=== PATIENT | male | born 1990 | race Caucasian/White ===

== ENCOUNTER 2019-06-24 10:03 | Emergency (ER) | payer SELFPAY ==
[2019-06-24 10:13] VITALS: BP 144/98; PULSE 115; RESP 16; TEMP 37.6; O2SAT 98
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
== END 2019-06-24 10:38 | disposition left against medical advice (07) ==
PROVIDERS: Emergency Provider Nurse Practitioner
DX: S01.312A Laceration without foreign body of left ear, initial encounter (principal); W25.XXXA Contact with sharp glass, initial encounter
CPT/HCPCS: 99202; G0463

== ENCOUNTER 2020-10-20 14:33 | Emergency (ER) | payer BC, SELFPAY ==
[2020-10-20 14:40] VITALS: BP 142/94; PULSE 101; RESP 16; TEMP 36.6; O2SAT 98
[2020-10-20 14:45] VITALS: BP 142/94; PULSE 101; RESP 16; TEMP 36.6; O2SAT 98
--- NOTE | 2020-10-20 14:45 | ED.EYEPROB ---
HPI - Eye Problem General Chief complaint: Eye Problems Stated complaint: Swollen eyelid Time Seen by Provider: 10/20/20 14:45 Source: patient and RN notes reviewed Mode of arrival: ambulatory Limitations: no limitations History of Present Illness HPI Narrative: 30-year-old male presents to the [facility] with complaints of right eye lid swelling and redness. States he noticed it this morning when he woke up. Has a possible bug bite to the medial aspect of the eyelid. No change in vision or blurry vision. No trauma to the eye. No discharge noted. Related Data Allergies Allergy/AdvReac Type Severity Reaction Status Date / Time No Known Allergies Allergy Verified 10/20/20 14:41 Review of Systems Review of Systems: All systems reviewed & are unremarkable except as noted in HPI and below Constitutional: Constitutional: Reports no additional constitutional complaints, Denies chills and Denies fever(s) Eyes: Eyes: Reports as per HPI, Denies blind spots, Denies exophthalmos, Denies change in vision, Denies eye discharge and Denies photophobia ENT: Reports system reviewed and no additional complaints, except as documented Cardiovascular: Cardiovascular: Reports no additional cardiovascular complaints and Denies chest pain Respiratory: Respiratory: Reports no additional respiratory complaints, Denies cough and Denies dyspnea Gastrointestinal: Gastrointestinal: Reports no additional gastrointestinal complaints, Denies abdominal pain, Denies nausea and Denies vomiting Musculoskeletal: Musculoskeletal: Reports no additional musculoskeletal complaints Integumentary/Breasts: Skin/Breast: Reports system reviewed and no additional complaints, except as docu, Denies erythema and Denies rash Neurologic: Reports system reviewed and no additional complaints, except as documented Psychiatric: Psychiatric: Reports no additional psychiatric complaints Allergic/Immunologic: Allergic/Immunologic: Reports no additional allergic/immunologic complaints PMFSH Past Medical History Medical History (Updated 10/21/20 @ 14:20 by Radha Goldberg) Refused assessment of physical health Comments At the time of my signature, I reviewed and agree with the nursing past medical, surgical, social, and family history. There is no relevant family history pertinent to the patient complaint. Exam Const: General: healthy appearing, no acute distress and alert Nutritional Appearance: well nourished Orientation/consciousness: patient oriented x3 Limitations: no limitations HENMT: Head: normal to inspection Ears: external ears normal, TM's normal bilaterally and Abnormal EAC present cerumen impaction on the left and excessive cerumen on the right General nose exam: Normal external nose present, Normal nares present and Normal nasal mucous membranes and turbinates present Face and sinus: normal facial exam Mouth: Yes Normal oral and palatal mucosa present and Yes lip normal Throat: posterior oropharynx normal Eyes: General: appearance normal, both eyes and all related structures Visual Moreira: normal visual moreira by confrontation Alignment and Position: alignment normal Eyelids: eyelid abnormality right upper eyelid erythema, swelling and tenderness Conjunctivae: conjunctivae normal Sclera: sclerae normal Cornea: corneas normal Pupils: Equal, round and reactive pupils present EOM: EOMs intact bilaterally Direct Ophthalmoscopy: no photophobia Neck: Neck: normal visual inspection, no lymphadenopathy and no meningeal signs Chest: Chest palpation & inspection: normal inspection of the chest Resp: Effort & Inspection: normal respiratory effort and no use of accessory muscles Auscultation: clear to auscultation bilaterally, no crackles, no rales, no rhonchi and no wheezes Cardio: Rate: regular rate Rhythm: regular rhythm Back/Spine/Pelvis: Back: no CVA tenderness Skin: General skin exam: normal color Rashes: no rashes Neuro: General: patient jaime
== END 2020-10-20 15:04 | disposition home or self-care (01) ==
PROVIDERS: Emergency Provider Nurse Practitioner; PCP Physician Assistant
DX: H10.9 Unspecified conjunctivitis (principal); H61.23 Impacted cerumen, bilateral
CPT/HCPCS: 69210; 99213; G0463

== ENCOUNTER 2020-10-22 15:34 | Emergency (ER) | payer BC, SELFPAY ==
[2020-10-22 15:41] VITALS: BP 140/99; PULSE 107; RESP 16; TEMP 36.9; O2SAT 99
--- NOTE | 2020-10-22 16:11 | ED.GENADULT ---
HPI - General Adult General Chief complaint: Skin/Abscess/Foreign Body Stated complaint: poison brendon Time Seen by Provider: 10/22/20 16:12 Source: patient and RN notes reviewed Mode of arrival: ambulatory Limitations: no limitations History of Present Illness HPI narrative: 30-year-old male presents with complaints of red, raised, itching, burning, rash to the right arm, right upper eyelid, right hip and groin area, for the past 3 days. 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 Denies new detergent, personal hygiene products, or laundry detergent. ?No new foods or medications. ?Rohit reports visiting the [facility] several days ago and currently being treated for Conjunctivitis with antibiotics by mouth and eye ointment. ?Right upper eyelid swelling is decreasing. No bleeding or drainage. Denies fever or chills, headaches, weakness, fatigue, myalgia, or tongue swelling. ?Denies chest pain or dyspnea. Remains active. ?The patient reports he has not been diagnosed with COVID-19. ?The patient reports he is not waiting for the results of a COVID-19 lab test. ?The patient reports he does not have a new or worsening cough. ?The patient reports he does not have any rhinorrhea, congestion, sore throat, loss of taste or smell, nausea, vomiting, abdominal pain, and diarrhea. ?Denies recent traveling. ?Denies concerns for COVID-19 or exposures. ?At this time, the patient is not suspected of having COVID-19. Some parts of this dictation were generated by voice recognition software and may contain typographical and/or grammatical inaccuracies. Related Data Allergies Allergy/AdvReac Type Severity Reaction Status Date / Time No Known Allergies Allergy Verified 10/20/20 14:41 Review of Systems Review of Systems: Narrative: CONSTITUTIONAL: Denies fever, chills, sweats. EYES: Denies visual changes, redness, discharge. ENT: Denies rhinorrhea, congestion, sore throat, otalgia. CARDIOVASCULAR: Denies chest pain, palpitations, edema. RESPIRATORY: Denies dyspnea, wheezing, cough. GASTROINTESTINAL: Denies abdominal pain, nausea, vomiting, diarrhea. GENITOURINARY: Denies dysuria, hematuria, abnormal discharge. SKIN: Complains of red, burning, and itching rash to right arm, right upper eyelid, right hip and groin area. Denies drainage. MUSCULOSKELETAL: Denies acute back pain, joint pain, or myalgia. NEUROLOGIC: Denies numbness or focal weakness. PSYCHIATRIC: Denies anxiety or depression. All other systems reviewed are negative, except as documented in HPI. [facility] Past Medical History Medical History (Updated 10/23/20 @ 00:00 by Brian Mason) No significant past medical history Surgical History Surgical History (Updated 10/22/20 @ 16:26 by KARINA Kirkpatrick) No significant past surgical history Family History Family History (Updated 10/22/20 @ 16:26 by KARINA Kirkpatrick) Father Alive and well Mother Alive and well Social History Social History (Updated 10/22/20 @ 16:27 by KARINA Kirkpatrick) Smoking status: Light tobacco smoker Tobacco type: cigarettes Second hand tobacco smoke exposure: No Alcohol intake: current Substance use: never Substance use type: does not use Living arrangements: with family Occupation/Education: occupation Gender identity (if verbalized by the patient): Male Comments At time of signature, agree with the nurse past medical, surgical, social, and family history. There is no relevant family history pertinent to the presenting complaint. Exam Narrative: Exam Narrative: GENERAL: This is a well-nourished, well-developed patient, in no apparent distress. Talks in full sentences and ambulates with steady gait without dyspnea. HEAD: Normocephalic, atraumatic. EYES: PERRL. Sclera clear/white. Vision is grossly intact. EARS: External ears normal, auditory canals clear and without drainage, TMs normal withou
[2020-10-22] MEDS: methylPREDNISolone SOD SUCC 125 MG VIAL IM (16:27)
[2020-10-22 16:47] VITALS: BP 138/80; PULSE 72; RESP 16
== END 2020-10-22 16:47 | disposition home or self-care (01) ==
PROVIDERS: Emergency Provider Nurse Practitioner Family; PCP Physician Assistant
DX: L23.7 Allergic contact dermatitis due to plants, except food (principal); F17.210 Nicotine dependence, cigarettes, uncomplicated
CPT/HCPCS: 96372; 99213; G0463; J2930

== ENCOUNTER 2022-07-25 13:24 | Emergency (ER) | payer OTHER, SELFPAY ==
[2022-07-25 13:37] VITALS: BP 144/95; PULSE 96; RESP 16; TEMP 37.2; O2SAT 99
--- NOTE | 2022-07-25 13:44 | ED.EXTPRO ---
HPI - Extremity Problem General Chief complaint: Extremity Injury, Upper Stated complaint: right arm pain Time Seen by Provider: 07/25/22 14:08 Source: patient and RN notes reviewed Mode of arrival: ambulatory Limitations: no limitations History of Present Illness HPI Narrative: 32-year-old male presents concern for right forearm pain. He reports pain started this morning, he denies injury or trauma. He denies redness, warmth, swelling. Reports the arm feels hard. He reports arm pain worsens when he makes a fist. He reports he cannot outward flex his wrist without pain to the forearm MD Complaint: extremity pain Related Data Home Medications Medication Instructions Recorded Confirmed bupropion HCl 150 mg 24 hr tablet, mg PO 07/25/22 extended release lisinopril 10 mg tablet mg 07/25/22 Allergies Allergy/AdvReac Type Severity Reaction Status Date / Time No Known Allergies Allergy Verified 07/25/22 13:56 Review of Systems Review of Systems: CONSTITUTIONAL: Denies malaise, chills, sweats, or fever. CARDIOVASCULAR: Denies chest pain, palpitations, or edema. RESPIRATORY: Denies cough or dyspnea. SKIN: Denies rash or itching, bruising, redness, swelling. MUSCULOSKELETAL: Reports right forearm pain NEUROLOGIC: Denies numbness, weakness All systems reviewed & are unremarkable except as noted in HPI and below PMFSH Past Medical History Medical History (Updated 07/25/22 @ 14:13 by Radha Brown NP) No significant past medical history Surgical History Surgical History (Updated 10/22/20 @ 16:26 by KARINA Kirkpatrick) No significant past surgical history Family History Family History (Updated 10/22/20 @ 16:26 by KARINA Kirkpatrick) Father Alive and well Mother Alive and well Social History Social History (Updated 10/22/20 @ 16:27 by KARINA Kirkpatrick) Smoking status: Light tobacco smoker Tobacco type: cigarettes Second hand tobacco smoke exposure: No Alcohol intake: current Substance use: never Substance use type: does not use Living arrangements: with family Occupation/Education: occupation Gender identity (if verbalized by the patient): Male Comments At time of signature, agree with nursing past medical, surgical, social and family history. There is no relevant family history pertinent to the presenting complaint Exam Narrative: GENERAL: Well-appearing, well-nourished, and in no acute distress. HEAD: Normocephalic, atraumatic. EYES: PERRLA, conjunctivae clear NECK: Supple. CHEST: Speaks in full sentences. No respiratory distress. HEART: Regular rate and rhythm. Normal and equal peripheral pulses. EXTREMITIES: Right hand, wrist, forearm has grossly normal strength and sensation, limited range of motion. No edema or ecchymosis. 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 Normal sensation with sensitivity to light touch and pain. No point tenderness. No open wounds, no skin tenting, no devitalized tissue or atrophy, no trophic changes, no obvious deformity, alignment normal, nearby joints and structures intact. Distal pulses palpable and equal bilaterally, skin warm, dry, pink. Capillary refill less than 3 seconds. SKIN: Warm, dry, no rash. NEURO: Alert and oriented x3. PSYCH: Normal mood and affect Course Course Emergency Course: Patient is aware of diagnosis, understands and agrees to treatment plan. Anticipatory guidance given. Patient agrees to follow-up as directed and is aware of reasons to seek care at the emergency department. Portions of this record may have been created with voice recognition software Level of Care: Express Care Visit Vital Signs Vital signs: Vital Signs Temperature 99.0 F 07/25/22 13:37 Pulse Rate 96 07/25/22 13:37 Respiratory Rate 16 07/25/22 13:37 Blood Pressure 144/95 H 07/25/22 13:37 Pulse Oximetry 99 07/25/22 13:37 Oxygen Delivery Room Air 07/25/22 13:37 Temperature 99.0 F 07/25/22 13:37 Pulse
== END 2022-07-25 14:24 | disposition home or self-care (01) ==
PROVIDERS: Emergency Provider Nurse Practitioner; PCP Physician Assistant
DX: M77.8 Other enthesopathies, not elsewhere classified (principal); F17.210 Nicotine dependence, cigarettes, uncomplicated
CPT/HCPCS: 99213; G0463

== ENCOUNTER 2024-02-03 09:36 | Outpatient (CLI) | payer OTHER, SELFPAY ==
--- NOTE | 2024-02-03 09:58 | ECG_ITS ---
Test Date: 2024-02-03 10:09:35 Measurements Intervals Osteen Rate: 89 P: 22 OH: 171 QRS: 44 QRSD: 104 T: 26 QT: 344 QTc: 420 Interpretive Statements SINUS RHYTHM No previous ECG available for comparison Electronically Signed On 02-03-2024 13:43:01 CDT by Yenny Orr M.D.
[2024-02-03 10:08] LABS: Basophils Absolute Auto 0.1 K/mm3 (0.0-0.1); Basophils Percent Auto 0.6 % (0.2-1.2); Eosinophils Absolute Auto 0.1 K/mm3 (0-0.3); Eosinophils Percent Auto 1.5 % (0-4.4); Hematocrit 45.5 % (42.0-52.0); Hemoglobin 15.4 g/dL (14.0-18.0); Immature Granulocyte Absolute 0.04 K/mm3 (0.00-0.031); Immature Granulocyte Percent A 0.4 % (0-0.5); Lymphocytes Absolute Auto 1.66 K/mm3 (0.9-3.2); Lymphocytes Percent Auto 17.2 % (18.3-44.2); Mean Corpuscular HGB Conc 33.8 g/dl (32-36); Mean Corpuscular Hemoglobin 31.9 pg (26-34); Mean Corpuscular Volume 94.2 fl (80-100); Mean Platelet Volume 10.2 fl (7.4-10.4); Monocytes Absolute Auto 0.6 K/mm3 (0.1-0.6); Monocytes Percent Auto 6.6 % (2.6-8.5); Neutrophils Absolute Auto 7.1 K/mm3 (1.3-6.7); Neutrophils Percent Auto 73.7 % (45.5-73.1); Platelet Count Result 204 k/mm3 (150-375); Red Blood Count 4.83 M/mm3 (4.6-6.20); White Blood Count 9.6 K/mm3 (4.5-10.0)
[2024-02-03 10:24] LABS: Alanine Aminotransferase 25 U/L (6-50); Albumin Level 4.5 g/dL (3.5-5.1); Alkaline Phosphatase 69 U/L (38-126); Anion Gap 8 mmol/L (4-12); Aspartate Amino Transferase 26 U/L (17-59); Bilirubin,Total 0.9 mg/dL (0.2-1.3); Blood Urea Nitrogen 14 mg/dL (9-20); Calcium 9.3 mg/dL (8.4-10.2); Carbon Dioxide 27 mmol/L (22-30); Chloride 106 mmol/L (98-107); Estimated Glomerular Filt Rate > 60; Glucose 105 mg/dL (65-110); Sodium 141 mmol/L (137-145)
[2024-02-03 10:30] LABS: Hemoglobin A1C 5.6 % (<5.7)
== END 2024-02-03 09:37 | disposition home or self-care (01) ==
PROVIDERS: PCP Physician Assistant; Visit Provider Physician Assistant
DX: Z01.89 Encounter for other specified special examinations (principal)
CPT/HCPCS: 36415; 80053; 83036; 85025; 93005

== ENCOUNTER 2024-03-23 14:15 | Emergency (ER) | payer OTHER, SELFPAY ==
[2024-03-23 14:19] VITALS: BP 158/98; PULSE 118; RESP 17; TEMP 36.6; O2SAT 98
--- NOTE | 2024-03-23 16:50 | ED_ITS ---
HPI - General Adult General Chief complaint: Unspecified <Rufina Chandler PA-C - Last Filed: 03/23/24 16:56> Stated complaint: shaking real bad <Rufina Chandler PA-C - Last Filed: 03/23/24 16:56> Time Seen by Provider: 03/23/24 16:51 <Rufina Chandler PA-C - Last Filed: 03/23/24 16:56> Focused HPI: Patient is a 33 y/o male who presents to the ED with c/o shakiness. Patient reports he woke up this morning feeling shaky all over. Has had tremors in his extremities. Patient does admit that he drank ETOH last night. Denies previous history of alcohol withdrawal, alcohol seizures. Reports social alcohol use. Denies daily drinking. Patient states he does feel mildly anxious. Feels as though his heart is racing. Feels like a stutter in his movements as though they are not fluid. Denies DUARTE, dizziness, lightheadedness, focal weakness or numbness, CP, SOB, N/V. GENERAL: Well-appearing, well-nourished, and in no acute distress. HEAD: Normocephalic, atraumatic. CHEST: Clear to auscultation. ?No respiratory distress. HEART: Tachycardic with regular rhythm.? NEURO: ?Alert and oriented x3. Gross focal deficits. Strength equal. Mild tremor of upper extremities bilaterally. PSYCHIATRIC: Mildly anxious appearing. Patient screened in triage and initial orders placed.? ?Additional care and disposition to be based upon?diagnostic testing and treatment. <Rufina Chandler PA-C - Last Filed: 03/23/24 16:56> Source: patient <Rufina Chandler PA-C - Last Filed: 03/23/24 16:56> Mode of arrival: ambulatory <Rufina Chandler PA-C - Last Filed: 03/23/24 16:56> Limitations: no limitations <Rufina Chandler PA-C - Last Filed: 03/23/24 16:56> History of Present Illness HPI narrative: agree with above <Nuria Law MD - Last Filed: 03/31/24 10:55> Related Data Home medications: Home Medications ?Medication ?Instructions ?Recorded ?Confirmed ?Last Taken ?Type bupropion HCl 150 mg 24 hr tablet, mg PO 07/25/22 Unknown History extended release lisinopril 10 mg tablet mg 07/25/22 Unknown History <Rufina Chandler PA-C - Last Filed: 03/23/24 16:56> Allergies/adverse reactions: Allergies Allergy/AdvReac Type Severity Reaction Status Date / Time No Known Allergies Allergy Verified 03/23/24 14:20 <Rufina Chandler PA-C - Last Filed: 03/23/24 16:56> Review of Systems 2 Review of Systems: All systems reviewed & are unremarkable except as noted in HPI and below <Nuria Law MD - Last Filed: 03/31/24 10:55> [facility] Past Medical History Medical History: Medical History No significant past medical history <Rufina Chandler PA-C - Last Filed: 03/23/24 16:56> Surgical History Surgical History: Surgical History No significant past surgical history <Rufina Chandler PA-C - Last Filed: 03/23/24 16:56> Family History Family History: Family History Father Alive and well Mother Alive and well <Rufina Chandler PA-C - Last Filed: 03/23/24 16:56> Social History Social History: Social History Smoking status: Light tobacco smoker Tobacco type: cigarettes Second hand tobacco smoke exposure: No Alcohol intake: current Substance use: never Substance use type: does not use Living arrangements: with family Occupation/Education: occupation Gender identity (if verbalized by the patient): Male <DARA De La Fuente Last Filed: 03/23/24 16:56> Exam 2 Narrative: GENERAL: Well-appearing, in no acute distress, pleasant cooperative, very mildly tremulous HEAD: Normocephalic, atraumatic. EYES: PERRLA and EOMI. ENT: Mucous membranes moist. NECK: Supple. CHEST: Clear to auscultation. No respiratory distress. HEART: Regular rate and rhythm ABDOMEN: Soft, nontender, nondistended EXTREMITIES: Normal range of motion. SKIN: Warm, dry, no rash. NEURO: No focal deficits. Alert and oriented x3. PSYCH: mildly anxious <Nuria Law MD - Last Filed: 03/31/24 10:55> Course Vital Signs Vital signs: Vital Signs Temperature 98 F 03/23/24 14:19 Pulse Rate 118 H 03/23/24 14:19 Respiratory Rate 17 03/23/24 14:19 Blood Pressure 158/98 H 03/23/24 14:19 Pulse Oximetry 98 03/23/24 14:19 Oxygen Delivery Room Air 03/23/24 14:19 Temperature 98 F 03/23/24 14:19 Pulse Rate 82 03/23/24 21:45 Respiratory Rate 16 03/23/24 21:45 Blood Pressure 148/96 H 03/23/24 21:45 Pulse Oximetry 100 03/23/24 21:45 Oxygen Delivery Room Air 03/23/24 14:19 <Rufina Chandler PA-C - Last Filed: 03/23/24 16:56> Vital Signs Temperature 98 F 03/23/24 14:19 Pulse Rate 118 H 03/23/24 14:19 Respiratory Rate 17 03/23/24 14:19 Blood Pressure 158/98 H 03/23/24 14:19 Pulse Oximetry 98 03/23/24 14:19 Oxygen Delivery Room Air 03/23/24 14:19 Temperature 98 F 03/23/24 14:19 Pulse Rate 82 03/23/24 21:45 Respiratory Rate 16 03/23/24 21:45 Blood Pressure 148/96 H 03/23/24 21:45 Pulse Oximetry 100 03/23/24 21:45 Oxygen Delivery Room Air 03/23/24 14:19 <Nuria Law MD - Last Filed: 03/31/24 10:55> Medical Decision Making MDM Narrative Medical decision making narrative: MSE by ZULEMA in triage. <DAVE De La FuenteC - Last Filed: 03/23/24 16:56> MSE by ZULEMA in triage. 33-year-old male presenting with tremors, anxiety, palpitations after drinking heavily last night. Patient is tachycardic on arrival, was improved by the time I saw him. Exam is otherwise remarkable for the above. Blood work is unremarkable. Patient received fluids and some Ativan and feels improved. I suspect his symptoms were related to the heavy drinking last night. He denies regular alcohol use and states that he never drinks is heavily as he did last night. Advised abstinence from ethanol and aggressive oral hydration. Feel he is safe for outpatient management. Discussed appropriate supportive care and return precautions. Discharged in stable condition. <Nuria Law MD - Last Filed: 03/31/24 10:55> Differential Diagnosis Differential Diagnosis: Palpitations, anxiety, hangover, tremors <Nuria Law MD - Last Filed: 03/31/24 10:55> Medical Records Medical records reviewed: Yes I reviewed the external patient's medical records. <Nuria Law MD - Last Filed: 03/31/24 10:55> Vital Signs Vital Signs: Vital Signs Temperature 98 F 03/23/24 14:19 Pulse Rate 118 H 03/23/24 14:19 Respiratory Rate 17 03/23/24 14:19 Blood Pressure 158/98 H 03/23/24 14:19 Pulse Oximetry 98 03/23/24 14:19 Oxygen Delivery Room Air 03/23/24 14:19 Temperature 98 F 03/23/24 14:19 Pulse Rate 82 03/23/24 21:45 Respiratory Rate 16 03/23/24 21:45 Blood Pressure 148/96 H 03/23/24 21:45 Pulse Oximetry 100 03/23/24 21:45 Oxygen Delivery Room Air 03/23/24 14:19 <Rufina Chandler PA-C - Last Filed: 03/23/24 16:56> Vital Signs Temperature 98 F 03/23/24 14:19 Pulse Rate 118 H 03/23/24 14:19 Respiratory Rate 17 03/23/24 14:19 Blood Pressure 158/98 H 03/23/24 14:19 Pulse Oximetry 98 03/23/24 14:19 Oxygen Delivery Room Air 03/23/24 14:19 Temperature 98 F 03/23/24 14:19 Pulse Rate 82 03/23/24 21:45 Respiratory Rate 16 03/23/24 21:45 Blood Pressure 148/96 H 03/23/24 21:45 Pulse Oximetry 100 03/23/24 21:45 Oxygen Delivery Room Air 03/23/24 14:19 <Nuria Law MD - Last Filed: 03/31/24 10:55> Lab Data Lab results reviewed: Yes I reviewed the patient's lab results. <Nuria Law MD - Last Filed: 03/31/24 10:55> Result diagrams: 03/23/24 17:47 03/23/24 17:47 <Rufina Chandler PA-C - Last Filed: 03/23/24 16:56> Labs: Lab Results 03/23/24 Range/Units 17:47 WBC 13.5 H (4.5-10.0) K/mm3 RBC 4.66 (4.6-6.20) M/mm3 Hgb 14.6 (14.0-18.0) g/dL Hct 43.8 (42.0-52.0) % MCV 94.0 (80-100) fl MCH 31.3 (26-34) pg MCHC 33.3 (32-36) g/dl RDW 13.3 (11.5-14.5) % Plt Count 429 H D (150-375) k/mm3 MPV 9.9 (7.4-10.4) fl Immature Gran % (Auto) 0.6 H (0-0.5) % Neut % (Auto) 78.1 H (45.5-73.1) % Lymph % (Auto) 13.6 L (18.3-44.2) % [place] % (Auto) 7.5 (2.6-8.5) % Eos % (Auto) 0.0 (0-4.4) % Baso % (Auto) 0.2 (0.2-1.2) % Lymph # (Auto) 1.83 (0.9-3.2) K/mm3 [place] # (Auto) 1.0 H (0.1-0.6) K/mm3 Eos # (Auto) 0.0 (0-0.3) K/mm3 Baso # (Auto) 0.0 (0.0-0.1) K/mm3 Abs Immat Gran (auto) 0.08 H (0.00-0.031) K/mm3 Absolute Neuts (auto) 10.5 H (1.3-6.7) K/mm3 Absolute Nucleated RBC 0.000 (0.0-0.012) K/mm3 Nucleated RBC % 0.0 (0.0-0.2) % % Immature Plt Fraction 3.1 (0.9-11.2) % Sodium 138 (137-145) mmol/L Potassium 4.2 (3.4-5.0) mmol/L Chloride 101 (98-107) mmol/L Carbon Dioxide 27 (22-30) mmol/L Anion Gap 10 (4-12) mmol/L BUN 16 (9-20) mg/dL Creatinine 0.80 (0.7-1.3) mg/dL Estim Creat Clear Calc 158 ml/min Estimated GFR > 60 (59 - ) Glucose 112 H (65-110) mg/dL Calcium 10.5 H (8.4-10.2) mg/dL Magnesium 2.3 (1.6-2.3) mg/dL Total Bilirubin 1.1 (0.2-1.3) mg/dL AST 33 (17-59) U/L ALT 25 (6-50) U/L Alkaline Phosphatase 83 (38-126) U/L Total Creatine Kinase 133 (55-170) U/L Total Protein 9.0 H (6.3-8.2) g/dL Albumin 5.3 H (3.5-5.1) g/dL <Rufina Chandler PA-C - Last Filed: 03/23/24 16:56> Lab Results 03/23/24 Range/Units 17:47 WBC 13.5 H (4.5-10.0) K/mm3 RBC 4.66 (4.6-6.20) M/mm3 Hgb 14.6 (14.0-18.0) g/dL Hct 43.8 (42.0-52.0) % MCV 94.0 (80-100) fl MCH 31.3 (26-34) pg MCHC 33.3 (32-36) g/dl RDW 13.3 (11.5-14.5) % Plt Count 429 H D (150-375) k/mm3 MPV 9.9 (7.4-10.4) fl Immature Gran % (Auto) 0.6 H (0-0.5) % Neut % (Auto) 78.1 H (45.5-73.1) % Lymph % (Auto) 13.6 L (18.3-44.2) % [place] % (Auto) 7.5 (2.6-8.5) % Eos % (Auto) 0.0 (0-4.4) % Baso % (Auto) 0.2 (0.2-1.2) % Lymph # (Auto) 1.83 (0.9-3.2) K/mm3 [place] # (Auto) 1.0 H (0.1-0.6) K/mm3 Eos # (Auto) 0.0 (0-0.3) K/mm3 Baso # (Auto) 0.0 (0.0-0.1) K/mm3 Abs Immat Gran (auto) 0.08 H (0.00-0.031) K/mm3 Absolute Neuts (auto) 10.5 H (1.3-6.7) K/mm3 Absolute Nucleated RBC 0.000 (0.0-0.012) K/mm3 Nucleated RBC % 0.0 (0.0-0.2) % % Immature Plt Fraction 3.1 (0.9-11.2) % Sodium 138 (137-145) mmol/L Potassium 4.2 (3.4-5.0) mmol/L Chloride 101 (98-107) mmol/L Carbon Dioxide 27 (22-30) mmol/L Anion Gap 10 (4-12) mmol/L BUN 16 (9-20) mg/dL Creatinine 0.80 (0.7-1.3) mg/dL Estim Creat Clear Calc 158 ml/min Estimated GFR > 60 (59 - ) Glucose 112 H (65-110) mg/dL Calcium 10.5 H (8.4-10.2) mg/dL Magnesium 2.3 (1.6-2.3) mg/dL Total Bilirubin 1.1 (0.2-1.3) mg/dL AST 33 (17-59) U/L ALT 25 (6-50) U/L Alkaline Phosphatase 83 (38-126) U/L Total Creatine Kinase 133 (55-170) U/L Total Protein 9.0 H (6.3-8.2) g/dL Albumin 5.3 H (3.5-5.1) g/dL <Nuria Law MD - Last Filed: 03/31/24 10:55> Critical Care Time Critical Care Time Critical Care Time: No <Nuria Law MD - Last Filed: 03/31/24 10:55> Discharge Plan Discharge Clinical Impression: Shakiness, Palpitations <Rufina Chandler PA-C - Last Filed: 03/23/24 16:56> Patient Disposition: Home, Self-Care <Rufina Chandler PA-C - Last Filed: 03/23/24 16:56> Condition: Stable <Rufina Chandler PA-C - Last Filed: 03/23/24 16:56> Instructions: Antibiotic Form, Heart Palpitations (DC) <Rufina Chandler PA-C - Last Filed: 03/23/24 16:56> Additional Instructions: Your blood work today is reassuring. Please drink plenty of hydrating fluids such as water, Gatorade, Powerade. Please try to abstain from alcohol use. Follow-up closely with your PCP. If your symptoms worsen or other concerning symptoms arise, please return to the ER. <Rufina Chandler PA-C - Last Filed: 03/23/24 16:56> Patient Language: Korean <Rufina Chandler PA-C - Last Filed: 03/23/24 16:56> Prescriptions: No Action lisinopril 10 mg tablet bupropion HCl 150 mg tablet extended release 24 hr PO prednisone 20 mg tablet 40 mg PO DAILY 5 Days Qty: 10 0RF <Rufina Chandler PA-C - Last Filed: 03/23/24 16:56> Follow-up/Referrals: Maritn,OLIVIA Ralph [Primary Care Provider] - <Rufina Chandler PA-C - Last Filed: 03/23/24 16:56>
--- NOTE | 2024-03-23 16:52 | ECG_ITS ---
Test Date: 2024-03-23 17:34:13 Measurements Intervals [place] Rate: 123 P: 45 TN: 169 QRS: 68 QRSD: 96 T: 34 QT: 291 QTc: 416 Interpretive Statements SINUS TACHYCARDIA ABNORMAL RHYTHM ECG Compared to ECG 02/03/2024 10:09:35 Sinus rhythm no longer present Electronically Signed On 03-24-2024 14:27:24 [employer] MACHINE OPERATOR by Himanshu aDmon M.D.
[2024-03-23 16:53] VITALS: BP 154/110; PULSE 128; RESP 17; O2SAT 98
[2024-03-23 18:04] LABS: Alanine Aminotransferase 25 U/L (6-50); Albumin Level 5.3 g/dL (3.5-5.1); Alkaline Phosphatase 83 U/L (38-126); Anion Gap 10 mmol/L (4-12); Aspartate Amino Transferase 33 U/L (17-59); Bilirubin,Total 1.1 mg/dL (0.2-1.3); Blood Urea Nitrogen 16 mg/dL (9-20); Calcium 10.5 mg/dL (8.4-10.2); Carbon Dioxide 27 mmol/L (22-30); Chloride 101 mmol/L (98-107); Creatine Kinase 133 U/L (55-170); Estimated CRCL calculation 158 ml/min; Estimated Glomerular Filt Rate > 60; Glucose 112 mg/dL (65-110); Magnesium 2.3 mg/dL (1.6-2.3); Potassium 4.2 mmol/L (3.4-5.0); Sodium 138 mmol/L (137-145)
[2024-03-23 18:14] LABS: Basophils Percent Auto 0.2 % (0.2-1.2); Hematocrit 43.8 % (42.0-52.0); Hemoglobin 14.6 g/dL (14.0-18.0); Immature Granulocyte Absolute 0.08 K/mm3 (0.00-0.031); Immature Granulocyte Percent A 0.6 % (0-0.5); Immature Platelet Fraction Pct 3.1 % (0.9-11.2); Lymphocytes Absolute Auto 1.83 K/mm3 (0.9-3.2); Lymphocytes Percent Auto 13.6 % (18.3-44.2); Mean Corpuscular HGB Conc 33.3 g/dl (32-36); Mean Corpuscular Hemoglobin 31.3 pg (26-34); Mean Platelet Volume 9.9 fl (7.4-10.4); Monocytes Percent Auto 7.5 % (2.6-8.5); Neutrophils Absolute Auto 10.5 K/mm3 (1.3-6.7); Neutrophils Percent Auto 78.1 % (45.5-73.1); Platelet Count Result 429 k/mm3 (150-375); Red Blood Count 4.66 M/mm3 (4.6-6.20); Red Cell Distribution Width 13.3 % (11.5-14.5); White Blood Count 13.5 K/mm3 (4.5-10.0)
[2024-03-23] MEDS: SODIUM CHLORIDE 0.9% IV 1,000 ML 999 ML IV CONT (19:09)
[2024-03-23] MEDS: LORazepam (*CRX) 0.5 MG TABLET PO (19:09)
[2024-03-23 19:11] VITALS: BP 168/100; PULSE 118; RESP 15; O2SAT 100
[2024-03-23] MEDS: LORazepam INJ (*CRX) 2 MG/ML VIAL 0.5 MG IV PUSH (20:51)
[2024-03-23 21:45] VITALS: BP 148/96; PULSE 82; RESP 16; O2SAT 100
== END 2024-03-23 21:47 | disposition home or self-care (01) ==
PROVIDERS: Physician Assistant; Emergency Provider Emergency Medicine; PCP Physician Assistant
DX: R25.1 Tremor, unspecified (principal); R00.2 Palpitations
CPT/HCPCS: 36415; 80053; 82550; 83735; 85025; 85055; 93005; 96361; 96374; 99284; A9270; J2060; J7030